=== PATIENT | male | born 1955 | race Caucasian/White ===

== ENCOUNTER → 2019-12-12 08:02 | Outpatient (BNVA) | payer OTHER, SELFPAY | PROVIDERS: Family Provider Nurse Practitioner Family; PCP Student in an Organized Health Care Education/Training Program; Visit Provider Urology | DX: R97.20 Elevated prostate specific antigen [PSA] (principal); N39.9 Disorder of urinary system, unspecified; N40.1 Benign prostatic hyperplasia with lower urinary tract symptoms; N13.8 Other obstructive and reflux uropathy; N41.1 Chronic prostatitis | CPT/HCPCS: 81001; 84153 ==

== ENCOUNTER → 2020-03-12 08:54 | Outpatient (BNVA) | payer OTHER, SELFPAY | PROVIDERS: Family Provider Nurse Practitioner Family; PCP Student in an Organized Health Care Education/Training Program; Visit Provider Urology | DX: R97.20 Elevated prostate specific antigen [PSA] (principal); N40.1 Benign prostatic hyperplasia with lower urinary tract symptoms; N41.1 Chronic prostatitis | CPT/HCPCS: 81001; 84153 ==

== ENCOUNTER → 2020-04-01 10:03 | Outpatient (BNVA) | payer OTHER, SELFPAY | PROVIDERS: Family Provider Nurse Practitioner Family; PCP Student in an Organized Health Care Education/Training Program; Visit Provider Urology | DX: R97.20 Elevated prostate specific antigen [PSA] (principal); N40.1 Benign prostatic hyperplasia with lower urinary tract symptoms; N41.1 Chronic prostatitis | CPT/HCPCS: 88305 ==

== ENCOUNTER → 2020-07-30 10:39 | Outpatient (BNVA) | payer OTHER, SELFPAY | PROVIDERS: Family Provider Nurse Practitioner Family; PCP Student in an Organized Health Care Education/Training Program; Visit Provider Urology | DX: R97.20 Elevated prostate specific antigen [PSA] (principal) | CPT/HCPCS: 81001; 84153 ==

== ENCOUNTER → 2021-05-06 13:02 | Outpatient (BNVA) | payer OTHER, SELFPAY | PROVIDERS: Family Provider Nurse Practitioner Family; PCP Student in an Organized Health Care Education/Training Program; Visit Provider Urology | DX: R97.20 Elevated prostate specific antigen [PSA] (principal); N40.1 Benign prostatic hyperplasia with lower urinary tract symptoms; N41.1 Chronic prostatitis | CPT/HCPCS: 81003; 84153 ==

== ENCOUNTER → 2021-11-04 12:54 | Outpatient (BNVA) | payer OTHER, SELFPAY | PROVIDERS: Family Provider Nurse Practitioner Family; PCP Student in an Organized Health Care Education/Training Program; Visit Provider Urology | DX: R97.20 Elevated prostate specific antigen [PSA] (principal); N40.1 Benign prostatic hyperplasia with lower urinary tract symptoms; N41.1 Chronic prostatitis | CPT/HCPCS: 81003; 84153 ==

== ENCOUNTER 2022-05-04 12:04 | Outpatient (CLI) | payer MEDICARE, SELFPAY | END 2022-05-04 12:05 | disposition home or self-care (01) | PROVIDERS: PCP Student in an Organized Health Care Education/Training Program; Visit Provider Urology | DX: R97.20 Elevated prostate specific antigen [PSA] (principal); N40.1 Benign prostatic hyperplasia with lower urinary tract symptoms; N41.1 Chronic prostatitis | CPT/HCPCS: 36415; 81003; 84153; 99213 ==

== ENCOUNTER 2022-11-11 12:09 | Outpatient (CLI) | payer MEDICARE, SELFPAY | END 2022-11-11 12:10 | disposition home or self-care (01) | LOC: LAB 12:16 | PROVIDERS: PCP Student in an Organized Health Care Education/Training Program; Visit Provider Urology | DX: R97.20 Elevated prostate specific antigen [PSA] (principal) | CPT/HCPCS: 36415; 81003; 84153; 99213 ==

== ENCOUNTER → 2023-01-26 14:52 | Outpatient (BNVA) | payer MEDICARE, SELFPAY | PROVIDERS: PCP Student in an Organized Health Care Education/Training Program; Visit Provider Urology | DX: N40.1 Benign prostatic hyperplasia with lower urinary tract symptoms (principal) | CPT/HCPCS: 81003; 99214 ==

== ENCOUNTER 2023-02-24 12:46 | Oncology outpatient (recurring) (ONCR) | payer MEDICARE, SELFPAY ==
--- NOTE | 2023-02-24 13:35 | N.ONRAD NP_ITS ---
Radiation Oncology Consultation Patient Name: Mauricio Navarro Date of : 1955 Date of Service: 02/24/2023 Attending Physician: Bird Acevedo M.D. Mauricio Navarro was seen in consultation this afternoon at the request of Kain Bell M.D. for consideration of prostate radiotherapy in the management of a recently diagnosed prostate cancer. He initially was identified to have an elevated PSA level (7.3 ng/mL) in March of 2020. A transrectal ultrasound-guided biopsy of the prostate revealed benign prostate tissue without prostatic intraepithelial neoplasia or malignancy. Repeat PSA in November 2022 was 5 ng/mL. The digital rectal exam was normal. An MRI of the prostate ordered on November 25, 2022 demonstrated a 5.7 cm x 5.5 cm x 3.5 cm prostate gland (57.4 mL) with a 1.1 cm focus of decreased T2 weighted-signal intensity within the left anterior peripheral zone of the apex of the prostate gland (PI-RADS 4). An MRI fusion guided biopsy performed on January 03, 2023 diagnosed a prostatic adenocarcinoma with a Madison score of 3+4 (Grade Group 2) involving 20% of the sample from the left apex and 70% of the core from the targeted lesion. Also reported was an adenocarcinoma with a Madison score of 6 (Grade Group 1) in the right apex sample. No perineural invasion was reported. Patient was evaluated for prostate radiotherapy. I discussed The [place] [employer] on Cancer Staging for prostate cancer and specifically the patient???s clinical stage IIB (T1CN0) favorable intermediate-risk prostate cancer corresponding to the patient's diagnosis. I also reviewed The National Comprehensive Cancer Network Guidelines recommending active surveillance, external beam radiotherapy, brachytherapy, or surgery He has been scheduled for robotic prostatectomy next month. Signed by: Bird Acevedo 02/24/2023 1:34:35 PM
== END 2023-03-06 23:59 | disposition home or self-care (01) ==
LOC: ONCMED 12:48
PROVIDERS: PCP Family Medicine; Visit Provider Radiology Radiation Oncology
DX: C61 Malignant neoplasm of prostate (principal)
CPT/HCPCS: 99205

== ENCOUNTER → 2023-12-15 12:45 | Outpatient (BNVA) | payer MEDICARE, SELFPAY | PROVIDERS: PCP Family Medicine; Visit Provider Dermatology | DX: D48.5 Neoplasm of uncertain behavior of skin (principal); L57.0 Actinic keratosis; L82.1 Other seborrheic keratosis; D22.5 Melanocytic nevi of trunk; Z80.8 Family history of malignant neoplasm of other organs or systems | CPT/HCPCS: 11104; 17000; 99204 ==

== ENCOUNTER → 2023-12-27 14:49 | Outpatient (BNVA) | payer MEDICARE, SELFPAY | PROVIDERS: PCP Family Medicine; Visit Provider Dermatology | DX: D48.5 Neoplasm of uncertain behavior of skin (principal); Q82.8 Other specified congenital malformations of skin; Z48.02 Encounter for removal of sutures; L57.0 Actinic keratosis | CPT/HCPCS: 11104; 11105; 99213 ==

== ENCOUNTER → 2024-03-06 12:51 | Outpatient (BNVA) | payer MEDICARE, SELFPAY | PROVIDERS: PCP Family Medicine; Visit Provider Thoracic Surgery (Cardiothoracic Vascular Surgery) | DX: T81.31XD Disruption of external operation (surgical) wound, not elsewhere classified, subsequent encounter (principal); Y83.8 Other surgical procedures as the cause of abnormal reaction of the patient, or of later complication, without mention of misadventure at the time of the procedure | CPT/HCPCS: 99213 ==

== ENCOUNTER → 2024-03-14 10:53 | Outpatient (BNVA) | payer MEDICARE, SELFPAY | PROVIDERS: PCP Family Medicine; Visit Provider Dermatology | DX: L57.0 Actinic keratosis (principal); Z85.828 Personal history of other malignant neoplasm of skin; L81.4 Other melanin hyperpigmentation; L57.8 Other skin changes due to chronic exposure to nonionizing radiation | CPT/HCPCS: 17000; 99213 ==

== ENCOUNTER → 2024-07-24 13:15 | Outpatient (BNVA) | payer MEDICARE, SELFPAY | PROVIDERS: PCP Family Medicine; Visit Provider Dermatology | DX: L57.0 Actinic keratosis (principal); L81.4 Other melanin hyperpigmentation; L57.8 Other skin changes due to chronic exposure to nonionizing radiation; L82.1 Other seborrheic keratosis; Z85.828 Personal history of other malignant neoplasm of skin | CPT/HCPCS: 17000; 99213 ==

== ENCOUNTER → 2025-01-31 15:21 | Outpatient (BNVA) | payer MEDICARE, SELFPAY | PROVIDERS: PCP Family Medicine; Visit Provider Dermatology | DX: L82.1 Other seborrheic keratosis (principal); L57.8 Other skin changes due to chronic exposure to nonionizing radiation; Z08 Encounter for follow-up examination after completed treatment for malignant neoplasm; Z85.828 Personal history of other malignant neoplasm of skin; L30.9 Dermatitis, unspecified; L57.0 Actinic keratosis | CPT/HCPCS: 11102; 17000; 99213 ==

== ENCOUNTER → 2025-08-05 10:38 | Outpatient (BNVA) | payer MEDICARE, SELFPAY | PROVIDERS: PCP Family Medicine; Visit Provider Dermatology | DX: L72.0 Epidermal cyst (principal); L57.8 Other skin changes due to chronic exposure to nonionizing radiation; D18.01 Hemangioma of skin and subcutaneous tissue; L82.1 Other seborrheic keratosis; Z08 Encounter for follow-up examination after completed treatment for malignant neoplasm; Z85.828 Personal history of other malignant neoplasm of skin; L57.0 Actinic keratosis | CPT/HCPCS: 17000; 99213 ==